=== PATIENT | female | born 1970 | race Caucasian/White ===

== ENCOUNTER 2019-12-03 11:17 | Emergency (ER) | payer OTHER ==
[~2019-12-03] VITALS: Ht 160 cm; Wt 74.8 kg
--- NOTE | 2019-12-03 11:25 | NUR ---
Patient transferred to bed 9 via wheelchair by tech. RN evaluating patient at bedside.
[2019-12-03 11:30] VITALS: BP 135/78
--- NOTE | 2019-12-03 11:56 | NUR ---
49 Y/O F C/C FEVER/HEADACHE/MYALGIA X 4 DAYS. PER PT MYALGIA PAIN 10/10, SHARP, COLD EXARCERBATES,WARM ALLEVIATES. TYLENOL TAKEN WITH NO RELIEF. PER PT WAS YESTERDAY AT [facility] FOR SAME S/S; GOT SWABBED FOR COVID. PT PRESENTS IN NO RESPIRATORY DISTRESS. EUPNIC, 100% RA. VSS. PT NKA. HX ANEMIA. SX BLADDER REMOVAL. NO RX. NO NVD. SIDE RAIL X1.
--- NOTE | 2019-12-03 11:56 | NUR ---
COVID PRECAUTIONS TAKEN PER HOSPITAL POLICY PT ENTERED ER WITH MASK PT PLACED IN ISOLATION ROOM COVID COVID SIGN / SIGN IN SHEET AT BEDSIDE RN FULL PPE
--- NOTE | 2019-12-03 12:09 | NUR ---
: LISA PHONE: [phone]
--- NOTE | 2019-12-03 12:37 | NUR ---
Dr. Martinez is evaluating the patient at bedside.
[2019-12-03] MEDS ORDERED: ONDANSETRON 4 MG/2 ML VIAL IVP ONE (12:45)
[2019-12-03] MEDS ORDERED: NACL 0.9% 1,000 ML IV ONE ×2 (12:45→15:00)
[2019-12-03] MEDS ORDERED: MORPHINE SULFATE 4 MG/ML SYR IVP ONE (12:45)
[2019-12-03 13:23] LABS: HEMATOCRIT 33.9 % (36-48); HEMOGLOBIN 10.9 g/dL (12.0-16.0); MEAN CORPUSCULAR HEMOGLOBIN 23 pg (27-31); MEAN CORPUSCULAR HGB CONC 32 g/dL (33-37); MEAN CORPUSCULAR VOLUME 70.8 fL (80-94); PLATELET COUNT (AUTO) 282 K/uL (140-450); RED BLOOD CELL COUNT(AUTO) 4.79 MIL/uL (4.20-5.40); RED CELL DISTRIBUTION WIDTH 19.9 % (11.6-13.7); WHITE BLOOD COUNT (AUTO) 7.8 K/uL (4.8-10.8)
[2019-12-03 13:50] LABS: ALBUMIN 3.1 g/dL (3.4-5.0); ANION GAP 15.8 (8-16); CARBON DIOXIDE 21.6 mmol/L (21-32); CREATININE 0.8 mg/dL (0.6-1.3); POTASSIUM 3.4 mmol/L (3.5-5.1); THYROID STIMULATING HORMONE 1.68 uIU/mL (0.34-3.74); TOTAL BILIRUBIN 0.8 mg/dL (0.0-1.0)
[2019-12-03 14:01] LABS: LYMPHOCYTES % (MANUAL) 10 % (20-46); MONOCYTES % (MANUAL) 5 % (5-12)
[2019-12-03 14:21] LABS: APPEARANCE,URINE HAZY (CLEAR); BILIRUBIN,URINE 1+ (NEGATIVE); BLOOD, URINE 1+ (NEGATIVE); COLOR,URINE AMBER (YELLOW); LEUKOCYTE ESTERASE ,URINE NEGATIVE (NEGATIVE); NITRITE, URINE NEGATIVE (NEGATIVE); UGLUCOSE NEGATIVE (NEGATIVE)
[2019-12-03 15:18] LABS: WBC,URINE NONE SEEN /HPF (0-5)
--- NOTE | 2019-12-03 16:06 | NUR ---
DR. HASSAN RE-EVALUATING PT AT BEDSIDE.
--- NOTE | 2019-12-03 16:30 | NUR ---
PT RESTING IN BED, SIDE RAIL X1
[2019-12-03 16:46] VITALS: BP 108/68
--- NOTE | 2019-12-03 16:46 | NUR ---
Patient discharged with v/s stable. Written and verbal after care instructions given and explained. Patient alert, oriented and verbalized understanding of instructions. Ambulatory with steady gait. All questions addressed prior to discharge. ID band removed. Patient advised to follow up with PMD. Rx of MALORIE AND NORCO given. Patient educated on indication of medication including possible reaction and side effects. Opportunity to ask questions provided and answered.
== END 2019-12-03 16:46 | disposition home or self-care (01) ==
LOC: MED 11:17
DX: E86.0 Dehydration (principal); D64.9 Anemia, unspecified; M79.10 Myalgia, unspecified site; Z98.890 Other specified postprocedural states
CPT/HCPCS: 36415; 80053; 81001; 84443; 85025; 96374; 96375; 99284; J2270; J2405; J7030

== ENCOUNTER 2021-11-22 15:21 | Emergency (ER) | payer OTHER ==
[~2021-11-22] VITALS: Ht 134.6 cm; Wt 80.9 kg
[2021-11-22 15:24] VITALS: BP 187/98
[2021-11-22] MEDS: KETOROLAC 60 MG/2 ML VIAL IM ONE (16:00)
[2021-11-22] MEDS ORDERED: ACET-8386 PO (16:08)
[2021-11-22] MEDS ORDERED: IBUP-2213 PO (16:08)
[2021-11-22] MEDS ORDERED: CIPR500T4 PO (16:08)
== END 2021-11-22 16:40 | disposition home or self-care (01) ==
LOC: MED 15:21
DX: S13.4XXA Sprain of ligaments of cervical spine, initial encounter (principal); R51.9 Headache, unspecified; N39.0 Urinary tract infection, site not specified; Z90.49 Acquired absence of other specified parts of digestive tract; X58.XXXA Exposure to other specified factors, initial encounter; Y92.89 Other specified places as the place of occurrence of the external cause; Y93.89 Activity, other specified; Y99.8 Other external cause status
CPT/HCPCS: 81002; 81025; 96372; 99283; J1885

== ENCOUNTER 2022-03-22 10:06 | Emergency (ER) | payer OTHER ==
[~2022-03-22] VITALS: Ht 142.2 cm; Wt 81.6 kg
[~2022-03-22 10:06] MED LIST: ACET-8386 PO; CIPR500T4 PO; IBUP-2213 PO
[2022-03-22 10:14] VITALS: BP 101/41
--- NOTE | 2022-03-22 10:17 | NUR ---
PT AMB TO BED 1.
--- NOTE | 2022-03-22 10:24 | NUR ---
51/F WALKED IN C/O COUGH AND SORE THROAT ACCOMPANIED BY L UPPER BACK PAIN ONSET 3DAYS. STATES TESTING NEGATIVE FOR COVID 3 DAYS AGO. DENIES SOB OR CP. AFEBRILE AT BEDSIDE. AAOX4, AMBULATORY. PMH: ANEMIA
[2022-03-22] MEDS ORDERED: BENZONATATE 100 MG CAPLF PO STA (10:56)
[2022-03-22] MEDS ORDERED: ACETAMINOPHEN EXTRA STRENGTH 500 MG TAB PO ONE (11:00)
--- NOTE | 2022-03-22 11:16 | NUR ---
BLOOD DRAWN BY [employer]. COVID AND FLU SWAB COLLECTED
--- NOTE | 2022-03-22 11:21 | NUR ---
XR DONE AT BEDSIDE
[2022-03-22 11:28] LABS: BASOPHILS # (AUTO) 0.1 K/uL (0.00-0.22); BASOPHILS % (AUTO) 1.4 % (0.0-2.0); EOSINOPHILS # (AUTO) 0.3 K/uL (0-0.4); EOSINOPHILS % (AUTO) 4.3 % (0.0-4.0); HEMATOCRIT 35.8 % (36-48); HEMOGLOBIN 11.6 g/dL (12.0-16.0); LYMPHOCYTES # (AUTO) 1.8 K/uL (2.5-16.5); LYMPHOCYTES % (AUTO) 27.8 % (20.5-51.1); MEAN CORPUSCULAR HEMOGLOBIN 26 pg (27-31); MEAN CORPUSCULAR HGB CONC 33 g/dL (33-37); MEAN CORPUSCULAR VOLUME 80.1 fL (80-94); MONOCYTES # (AUTO) 0.7 K/uL (0.8-1.0); MONOCYTES % (AUTO) 10.7 % (1.7-9.3); NEUTROPHILS # (AUTO) 3.6 K/uL (1.8-7.7); NEUTROPHILS % (AUTO) 55.8 % (42.2-75.2); PLATELET COUNT (AUTO) 327 K/uL (140-450); RED BLOOD CELL COUNT(AUTO) 4.47 MIL/uL (4.20-5.40); RED CELL DISTRIBUTION WIDTH 15.5 % (11.6-13.7); WHITE BLOOD COUNT (AUTO) 6.4 K/uL (4.8-10.8)
[2022-03-22 11:52] LABS: ALBUMIN 3.6 g/dL (3.4-5.0); CARBON DIOXIDE 21.7 mmol/L (21-32); CREATININE 0.6 mg/dL (0.6-1.3); POTASSIUM 3.7 mmol/L (3.5-5.1); TOTAL BILIRUBIN 0.2 mg/dL (0.0-1.0)
[2022-03-22] MEDS ORDERED: BENZ150C2 PO (12:43)
[2022-03-22] MEDS ORDERED: ACET-10509 PO (12:43)
[2022-03-22 12:48] VITALS: BP 115/68
--- NOTE | 2022-03-22 12:48 | NUR ---
Patient discharged with v/s stable. Written and verbal after care instructions given and explained. Patient verbalized understanding. Ambulatory with steady gait. All questions addressed prior to discharge. Advised to follow up with PMD.
== END 2022-03-22 12:48 | disposition home or self-care (01) ==
LOC: MED 10:06
DX: J02.8 Acute pharyngitis due to other specified organisms (principal); Z20.822 Contact with and (suspected) exposure to COVID-19
CPT/HCPCS: 36415; 71045; 80053; 85025; 87426; 87804; 99284; Q0092